=== PATIENT | male | born 1945 | race Caucasian/White ===

== ENCOUNTER 2018-04-20 20:44 | Emergency (ER) | payer MEDICARE, OTHER ==
[2018-04-20 21:01] VITALS: BP 131/76
[2018-04-20] MEDS ORDERED: TETANUS/DIPHTHERIA/PERTUSSIS 0.5 ML SYRINGE IM ONE (22:03)
[2018-04-20] MEDS ORDERED: LIDOCAINE 1% 2 ML VIAL SUBQ STA (22:03)
--- NOTE | 2018-04-20 22:45 | ED Physician Documentation ---
History of Present Illness - Stated complaint Stated Complaint: FINGER INJURY - Chief complaint Chief Complaint: Ext Problem - History obtained from History obtained from: Patient - History of Present Illness Timing: Today Pain level max: 1 Pain level now: 0 Improved by: nothing Worsened by: palpation - Additonal information Additional information: splinter broke off in index finger, R. unknown last tetanus. He attempted to remove the splinter when it broke off inside the skin and he cannot remove the remaining portion. Review of Systems Neurologic: denies: Focal weakness, Numbness PD PAST MEDICAL HISTORY - Past Medical History Past Medical History: Yes Cardiovascular: High cholesterol : Other Other Past Medical History: prostate enlargment - Past Surgical History Past Surgical History: Yes General: Appendectomy Ortho: Knee replacement HEENT: Tonsil/Adenoidectomy - Present Medications Home Medications: Ambulatory Orders Medication Instructions Recorded Confirmed Aspirin 81 mg PO 04/20/18 Tamsulosin [Flomax] 0.4 mg PO ONCE 04/20/18 04/20/18 - Allergies Allergies/Adverse Reactions: Allergies Allergy/AdvReac Type Severity Reaction Status Date / Time No Known Drug Allergies Allergy Verified 04/20/18 20:54 - Social History Does the pt smoke?: No Smoking Status: Never smoker Does the pt drink ETOH?: No Does the pt have substance abuse?: No - Immunizations Immunizations are current?: No Immunizations: TDAP >10years/unknown - POLST Patient has POLST: No PD ED PE NORMAL - Vitals Vital signs reviewed: Yes - General General: Alert and oriented X 3 - Extremities Extremities: Other (Right index finger, 0.2 cm visible foreign body just underneath the skin. Distal aspect of the finger.) - Neuro Neuro: Alert and oriented X 3 Results - Vitals Vitals: Vital Signs - 24 hr 04/20/18 20:53 Temperature 36.3 C L Heart Rate 67 Respiratory 16 Rate Blood Pressure 131/76 H O2 Saturation 100 Oxygen O2 Source Room air Procedures - FB removal FB location: Subcutaneous FB removal preparation: Local anesthesia-specify (1% lidocaine) Removal method: Other (18-gauge needle was bent and hooked to remove the wooden splinter. Splinter removed intact.) FB removal aftercare: No complications, Patient tolerated well, Removed successfully PD MEDICAL DECISION MAKING - ED course Complexity details: considered differential, d/w patient ED course: Patient is a 72-year-old male with a splinter in the right index finger. Removed in the emergency department. Tolerated well. Tdap given. Warnings of infection and instructions on wound care given at bedside. Patient counseled regarding signs and symptoms for which I believe and urgent re-evaluation would be necessary. Patient with good understanding of and agreement to plan and is comfortable going home at this time This document was made in part using voice recognition software. While efforts are made to proofread this document, sound alike and grammatical errors may occur. Departure - Departure Disposition: 01 Home, Self Care Clinical Impression: Splinter Condition: Good Instructions: ED Foreign Body Splinter Removal Follow-Up: your,doctor as needed. [Other] Comments: Return if you worsen. Your tetanus shot was updated tonight. Return especially for redness, swelling or drainage from the wound. Discharge Date/Time: 04/20/18 23:00
== END 2018-04-20 23:00 | disposition home or self-care (01) ==
LOC: ED 20:44
DX: S60.450A Superficial foreign body of right index finger, initial encounter (principal); W45.8XXA Other foreign body or object entering through skin, initial encounter; E78.00 Pure hypercholesterolemia, unspecified; N40.0 Benign prostatic hyperplasia without lower urinary tract symptoms; Z23 Encounter for immunization
CPT/HCPCS: 90471; 99282; 99283